=== PATIENT | female | born 1975 | race Caucasian/White ===

== ENCOUNTER 2024-06-23 11:31 | Outpatient (CLI) | payer MEDICARE, MEDICAID ==
[2024-06-23] MEDS ORDERED: Barium Sulfate 96% 176 GM BOT (xray ONLY) ONE (11:50)
[2024-06-23] MEDS ORDERED: E-Z-HD 98% W/W 340GM BOT (x-ray ONLY) ONE (11:50)
== END 2024-06-23 11:32 | disposition home or self-care (01) ==
LOC: RAD 11:31
PROVIDERS: ATTEND Surgery
DX: E66.01 Morbid (severe) obesity due to excess calories (principal); Z98.84 Bariatric surgery status
CPT/HCPCS: 74246

== ENCOUNTER 2024-10-12 07:32 | Inpatient (IN) | payer MEDICARE, MEDICAID ==
[2024-10-12 12:35] VITALS: BMI 51.4
[2024-10-19] MEDS ORDERED: PROPOFOL 20 ML ONE ×2 (08:09→08:10)
[2024-10-19] MEDS ORDERED: Lidocaine 1% PF 5 ML VIAL ONE (08:10)
[2024-10-19] MEDS ORDERED: SUCCINYLCHOLINE/SOD CL,ISO/PF 200 MG/10 ML SYRINGE FS ONE (08:10)
[2024-10-19] MEDS ORDERED: Rocuronium Bromide 10 MG/ML (10ML VIAL) ONE ×2 (08:10→13:27)
[2024-10-19] MEDS ORDERED: Fentanyl 250 MCG/5 ML VIAL ONE (08:10)
[2024-10-19] MEDS ORDERED: Dexamethasone 4 mg/ml Vial ONE (08:10)
[2024-10-19] MEDS ORDERED: Ondansetron PF 4 MG/2 ML Vial ONE (08:10)
[2024-10-19] MEDS ORDERED: Ketamine In 0.9 % NaCl 50 MG/5 ML SYRINGE ONE (08:10)
[2024-10-19] MEDS ORDERED: ePHEDrine Sulfate 50 MG/10 ML VIAL ONE (08:14)
[2024-10-19] MEDS ORDERED: Scopolamine 1 mg/72 hour Patch ONE (08:27)
[2024-10-19] MEDS ORDERED: Enoxaparin 40 MG (0.4 mL) SYRINGE ONE (08:27)
[2024-10-19] MEDS ORDERED: cefOXitin 2 GM VIAL ONE ×2 (08:27→15:13)
[2024-10-19] MEDS ORDERED: Dexmedetomidine 200 MCG/2 ML VIAL ONE (08:47)
[2024-10-19] MEDS ORDERED: Bupivacaine 0.25% HCL 30 ML VIAL ONE (11:10)
[2024-10-19] MEDS ORDERED: EPINEPHrine 1 MG/ML VIAL ONE (11:10)
[2024-10-19] MEDS ORDERED: Promethazine HCl 25 MG/ML VIAL IM PRN (11:20)
[2024-10-19] MEDS ORDERED: oxyCODONE 5 MG TAB PO PRN (11:20)
[2024-10-19] MEDS ORDERED: Dextrose 5% in Water 1,000 ML IV PRN (11:20)
[2024-10-19] MEDS ORDERED: Glucagon 1 MG/ML KIT IM PRN (11:20)
[2024-10-19] MEDS ORDERED: diphenhydrAMINE 50 MG/ML VIAL IVP PRN (11:20)
[2024-10-19] MEDS ORDERED: Dextrose 50% Abboject 50 ML SYRINGE SLOW IVP PRN (11:20)
[2024-10-19] MEDS ORDERED: hydrALAZINE 20 MG/ML VIAL SLOW IVP PRN (11:20)
[2024-10-19] MEDS ORDERED: Ipratropium/Albuterol 3 ML NEB NEB PRN (11:20)
[2024-10-19] MEDS ORDERED: Ondansetron PF 4 MG/2 ML Vial IVP PRN (11:20)
[2024-10-19] MEDS ORDERED: traMADol HCl 50 MG TAB PO PRN (11:20)
[2024-10-19] MEDS: Ketorolac Tromethamine 30 MG (1 mL) VIAL IVP SCH (12:00)
[2024-10-19] MEDS ORDERED: Esmolol 100 MG/10 ML VIAL ONE (12:14)
[2024-10-19] MEDS ORDERED: Labetalol HCl 100 MG/20 ML VIAL ONE (12:37)
[2024-10-19] MEDS ORDERED: HYDROmorphone 2 MG/ML VIAL ONE (13:35)
[2024-10-19] MEDS: Acetaminophen 650 MG/20.3 ML UDCUP PO SCH (14:00)
[2024-10-19] MEDS ORDERED: SUGAMMADEX SODIUM 200 MG/2 ML VIAL ONE (14:52)
[2024-10-19] MEDS: Gabapentin 300 MG CAP PO SCH (15:00)
[2024-10-19] MEDS: D5 1/2 NS w/20 mEq KCL 1,000 ML IV SCH (18:13)
[2024-10-20 06:04] LABS: Hematocrit 39.1 % (36.0-47.0); Hemoglobin 13.4 g/dL (12.0-16.0); Platelet Count 226 10x3/uL (130-400)
[2024-10-20 07:57] VITALS: BP 121/74; TEMP 98.4
[2024-10-20] MEDS: Pantoprazole 40 MG VIAL IVP SCH (08:45)
[2024-10-20] MEDS: Amlodipine 10 MG TAB PO SCH (08:45)
[2024-10-20] MEDS: Enoxaparin 40 MG (0.4 mL) SYRINGE SC SCH (08:45)
[2024-10-20] MEDS: DULoxetine 30 MG CAP PO SCH (08:46)
[2024-10-20] MEDS: DULoxetine 60 MG CAP PO SCH (08:46)
[2024-10-20] MEDS: Lisinopril 20 MG TAB PO SCH (08:46)
== END 2024-10-20 12:44 | disposition home or self-care (01) | DRG 621 ==
LOC: EDSTATUS 15:00 → SURG A 10-19 07:13
PROVIDERS: ADMIT Surgery; ATTEND Surgery
PROC: 0D194ZB Bypass Duodenum to Ileum, Percutaneous Endoscopic Approach (ICD-10-PCS; principal; 2024-10-19)
PROC: 8E0W4CZ Robotic Assisted Procedure of Trunk Region, Percutaneous Endoscopic Approach (ICD-10-PCS; 2024-10-19)
DX: E66.01 Morbid (severe) obesity due to excess calories (principal); Z68.43 Body mass index [BMI] 50.0-59.9, adult; E11.9 Type 2 diabetes mellitus without complications; I10 Essential (primary) hypertension; Z91.040 Latex allergy status
CPT/HCPCS: 36415; 36416; 82565; 85014; 85018; 85049; 94760; J0171; J0665; J0694; J1100; J1650; J1885; J2405; J2470; J2704; J3010; J3480; J3490; S2900

== ENCOUNTER 2024-10-12 12:21 | Outpatient (CLI) | payer MEDICARE, MEDICAID | END 2024-10-12 12:22 | disposition home or self-care (01) | LOC: LABBT 12:21 | PROVIDERS: ATTEND Surgery | DX: Z01.810 Encounter for preprocedural cardiovascular examination (principal); E66.01 Morbid (severe) obesity due to excess calories; E11.9 Type 2 diabetes mellitus without complications; K91.2 Postsurgical malabsorption, not elsewhere classified | CPT/HCPCS: 93005; 93010 ==

== ENCOUNTER 2025-10-20 11:57 | Emergency (ER) | payer MEDICARE, MEDICAID ==
[2025-10-20] MEDS ORDERED: Ondansetron PF 4 MG/2 ML Vial ONE (12:34)
[2025-10-20 12:43] LABS: #Basophils 0.03 10x3/uL (0.0-0.2); #Eosinophils 0.04 10x3/uL (0.0-0.7); #Monocytes 0.38 10x3/uL (0.11-0.59); #Neutrophils 1.71 10x3/uL (1.40-6.50); %Basophils 1.0 % (0.0-1.0); %Eosinophils 1.3 % (0.0-10.0); %Lymphocytes 31.2 % (21.0-51.0); %Monocytes 12.1 % (0.0-10.0); %Neutrophils 54.4 % (42.0-75.0); Hematocrit 29.5 % (36.0-47.0); Hemoglobin 9.7 g/dL (12.0-16.0); Mean Corpuscular Hemoglobin 32.8 pg (27.0-31.0); Mean Corpuscular Volume 99.7 fL (78.0-98.0); Platelet Count 126 10x3/uL (130-400); Red Blood Cell (RBC) Count 2.96 mill/uL (4.20-5.40); White Blood Cell (WBC) Count 3.14 10x3/uL (4.8-10.8)
[2025-10-20 12:53] LABS: Lipase 6 U/L (8-78); Magnesium 1.8 mg/dL (1.6-2.6)
[2025-10-20 12:53] LABS: ALT (SGPT) 61 U/L (Less than 34); AST (SGOT) 182 U/L (11-34); Albumin 1.6 g/dL (3.1-4.5); Alkaline Phosphatase 255 U/L (40-110); Anion Gap 12 mmol/L (10-20); BUN (Urea Nitrogen) Less than 4 mg/dL (7.0-18.7); Bilirubin, Total 4.6 mg/dL (0.3-1.2); Calc. Creatinine Clearance 0 mL/min (70-130); Calcium 8.7 mg/dL (7.8-10.44); Carbon Dioxide 21 mmol/L (22-29); Chloride 106 mmol/L (98-107); Globulin 3.4 g/dL (2.4-3.5); Glucose 71 mg/dL (70-105); Potassium 3.4 mmol/L (3.5-5.1); Sodium 136 mmol/L (136-145)
[2025-10-20 12:57] LABS: INR-International Normal Ratio 1.4; Prothrombin Time 17.5 sec (12.0-14.7)
[2025-10-20 12:58] LABS: PTT 32.9 sec (22.9-36.1)
== END 2025-10-20 17:50 ==
LOC: ERS 11:57
DX: K75.9 Inflammatory liver disease, unspecified (principal); K76.0 Fatty (change of) liver, not elsewhere classified; I10 Essential (primary) hypertension; M10.9 Gout, unspecified; F41.9 Anxiety disorder, unspecified; F32.A Depression, unspecified; Z55.6 Problems related to health literacy; Z98.84 Bariatric surgery status
CPT/HCPCS: 71045; 74177; 76705; 80053; 83690; 83735; 85025; 85610; 85730; 93005; 94760; J2405; 96374